=== PATIENT | male | born 1975 | race Caucasian/White ===

== ENCOUNTER 2017-08-18 14:23 | Emergency (ER) | payer OTHER ==
[~2017-08-18] VITALS: Ht 177.8 cm; Wt 80.1 kg
[2017-08-18] MEDS ORDERED: NORCO 5/3251 TABLET PO (15:46)
[2017-08-18 15:55] VITALS: BP 136/81
== END 2017-08-18 16:03 | disposition home or self-care (01) ==
LOC: EME 14:23
DX: S49.91XA Unspecified injury of right shoulder and upper arm, initial encounter (principal); R20.2 Paresthesia of skin; R11.0 Nausea; W19.XXXA Unspecified fall, initial encounter
CPT/HCPCS: 71046; 73030; 99281; 99284